=== PATIENT | female | born 1950 | race African-American/Black ===

== ENCOUNTER 2018-11-04 17:08 | Inpatient (IN) | payer MEDICARE, OTHER ==
[~2018-11-04] VITALS: Ht 149.9 cm; Wt 81.2 kg
[2018-11-04] MEDS ORDERED: Solu-MEDROL 125mg Inj IVP ONE (17:15)
--- NOTE | 2018-11-04 17:24 | Emergency Room Report ---
History of Present Illness General Source: Patient Present Illness HPI Patient is a 68-year-old female who presented after increased shortness of breath. Patient onset of symptoms approximately 2 hours prior to arrival. She had prior history of cardiac disease as well as diabetes. She had previous myocardial infarction x3 in the past. She states that she had been having increased swelling to her throat and feeling like she was having increased difficulty with respirations. She had prior history of some allergic reactions. She denies any vomiting. Patient reports having some discomfort to left side for several days. She reports some associated left arm numbness. Allergies: Coded Allergies: CODEINE (Verified Allergy, Intermediate, 11/04/18) PENICILLINS (Verified Allergy, Intermediate, 11/04/18) ASPIRIN (Verified Allergy, Unknown, 11/04/18) Patient History Past Medical History: see triage record Reviewed Nursing Documentation: PMH: Agreed; PSxH: Agreed Review of Systems All Other Systems: negative except mentioned in HPI Physical Exam Sp02 EP Interpretation: reviewed, normal General Appearance: normal inspection, alert, GCS 15, obese, Chronically Ill Head: atraumatic ENT: normal ENT inspection, hearing grossly normal, uvula midline Neck: normal inspection, full range of motion, supple, no bony tend Respiratory: normal inspection, no respiratory distress, no retraction, no wheezing, rales Cardiovascular #1: regular rate, rhythm, no edema Gastrointestinal: normal inspection, normal bowel sounds, non tender, soft, no guarding, no hernia Genitourinary: no CVA tenderness Musculoskeletal: normal inspection, back normal, normal range of motion Neurologic: normal inspection, alert, oriented x3, responsive, extraction supervisor III-XII nml as tested, motor strength/tone normal, speech normal Psychiatric: normal inspection, judgement/insight normal, mood/affect normal Skin: normal inspection, normal color, no rash Lymphatic: other - left axillary tenderness Medical Decision Making Diagnostic Impression: Primary Impression: Dyspnea Additional Impressions: Flank pain Hx of coronary artery disease Left axillary pain ER Course Patient presented for shortness of breath. Differential included but was not limited to allergic reaction, anemia, pneumonia, pneumothorax, myocardial infarction, congestive heart failure, acidosis among others. Patient initially presented with some sensation of difficulty moving air. She was not noted to have stridor. She was given IV solu-medrol for possible allergic reaction. Patient was not given Aspirin due to allergy, but does have some concerning history for possible ACS. Patient was given IV morphine due to left arm pain. Patient was noted to have good perfusion and strength to both upper extremity. Pulses were equal. Because of complexity of patient's case laboratory testing and imaging studies were ordered. EKG interpreted by me showed normal sinus rhythm with a rate of [address] or T wave changes. Patient was noted to have some T wave flattening. Patient was noted to have normal WBC. Initial troponin was negative. CXR showed no evident infiltrate. CTA of chest was ordered to evaluate for possible pulmonary embolism due to shortness of breath. CT of chest read by radiology showed multiple finding including lesion to left axillary area. No evident pulmonary embolism or aortic dissection. Patient was started on IV Clindamycin due to lesion to axilla and penicillin allergy. See full report for details. Dr. Marco A Dominguez was contacted for inpatient management due to capitated physician. Dr. Macho Cruz was contacted for cardiology consult. Labs Test 11/04/18 17:50 11/04/18 17:55 11/04/18 19:20 White Blood Count 10.7 K/UL (4.8-10.8) Red Blood Count 5.51 M/UL (4.20-5.40) Hemoglobin 13.4 G/DL (12.0-16.0) Hematocrit 40.5 % (37.0-47.0) Mean Corpuscular Volume 74 FL (80-99) Mean Corpuscular Hemoglobin 24.4 PG (27.0-31.0) Mean Corpuscular Hemoglobin Concent 33.2 G/DL (32.0-36.0) Red Cell Distribution Width 13.4 % (11.6-14.8) Platelet Count 379 K/UL (150-450) Mean Platelet Volume 6.8 FL (6.5-10.1) Neutrophils (%) (Auto) 60.7 % (45.0-75.0) Lymphocytes (%) (Auto) 31.5 % (20.0-45.0) Monocytes (%) (Auto) 6.2 % (1.0-10.0) Eosinophils (%) (Auto) 0.3 % (0.0-3.0) Basophils (%) (Auto) 1.3 % (0.0-2.0) Sodium Level 139 MMOL/L (136-145) Potassium Level 4.2 MMOL/L (3.5-5.1) Chloride Level 97 MMOL/L (98-107) Carbon Dioxide Level 28 MMOL/L (21-32) Anion Gap 14 mmol/L (5-15) Blood Urea Nitrogen 16 mg/dL (7-18) Creatinine 1.1 MG/DL (0.55-1.30) Estimat Glomerular Filtration Rate 59.9 mL/min (>60) Glucose Level 207 MG/DL (74-106) Calcium Level 9.9 MG/DL (8.5-10.1) Total Bilirubin 0.6 MG/DL (0.2-1.0) Aspartate Amino Transf (AST/SGOT) 48 U/L (15-37) Alanine Aminotransferase (ALT/SGPT) 24 U/L (12-78) Alkaline Phosphatase 91 U/L (46-116) Troponin I 0.000 ng/mL (0.000-0.056) Pro-B-Type Natriuretic Peptide 43 pg/mL (0-125) Total Protein 8.8 G/DL (6.4-8.2) Albumin 3.9 G/DL (3.4-5.0) Globulin 4.9 g/dL Albumin/Globulin Ratio 0.8 (1.0-2.7) Urine Color Pale yellow Urine Appearance Clear Urine pH 5 (4.5-8.0) Urine Specific [place] 1.010 (1.005-1.035) Urine Protein Negative (NEGATIVE) Urine Glucose (UA) 4+ (NEGATIVE) Urine Ketones 2+ (NEGATIVE) Urine Blood Negative (NEGATIVE) Urine Nitrite Negative (NEGATIVE) Urine Bilirubin Negative (NEGATIVE) Urine Urobilinogen 1 MG/DL (0.0-1.0) Urine Leukocyte Esterase 1+ (NEGATIVE) Urine RBC 5-10 /HPF (0 - 2) Urine WBC 2-4 /HPF (0 - 2) Urine Squamous Epithelial Cells None /LPF (NONE/OCC) Urine Bacteria Few /HPF (NONE) Lactic Acid Level 1.60 mmol/L (0.66-2.22) EKG Diagnostic Results Rate: normal - 90 Rhythm: NSR ST Segments: no acute changes Status: improved Disposition: ADMITTED INPATIENT Condition: Serious Patrice Cheema MD November 04, 2018 17:23
[2018-11-04] MEDS: Nitroglycerin Subl 0.4mg tab SL PRN ×2 (17:29→20:31)
[2018-11-04 17:30] VITALS: BP 136/67
--- NOTE | 2018-11-04 17:30 | NUR ---
ED Nurse Note: Patient brought in to ER by ambulance from home due to SOB. pt aao x4 and anxious due to SOB. per pt, SOB started by 1500 today while she was in shower. pt is saturating 100% on room air. per pt, she has had 3 heart attacks which makes her concern about this symptom. skin clean and intact. pt able to ambulate with assist and change position in bed.
--- NOTE | 2018-11-04 17:35 | NUR ---
ED Nurse Note: Nitro 0.4mg was placed under the tongue.
--- NOTE | 2018-11-04 17:50 | NUR ---
ED Nurse Note: second dose of Nitro 0.4mg was placed under the tongue.
--- NOTE | 2018-11-04 18:00 | NUR ---
ED Nurse Note: pt verbalized improved chest pain but requesting Morphin for Lt flank pain. ERMD made aware.
[2018-11-04] MEDS ORDERED: AMLODIPINE BESY10 MG ORAL (18:09)
[2018-11-04] MEDS ORDERED: MELOXICAM7.5 MG PO (18:09)
[2018-11-04] MEDS ORDERED: METOPROLOL TART50 M1 ORAL (18:09)
[2018-11-04] MEDS ORDERED: PLAVIX75 MG ORAL (18:09)
[2018-11-04] MEDS ORDERED: HYDROCHLOROTHIA25 MG ORAL (18:09)
[2018-11-04] MEDS ORDERED: HUMALOG MI100 UNIT/6 SQ (18:09)
--- NOTE | 2018-11-04 18:10 | NUR ---
ED Nurse Note: Patient unable to recall all of her meds or exact dosage at this time.
[2018-11-04] MEDS ORDERED: Morphine Sulfate 2mg/ml Inj(IV/IM USE ONLY) IVP ONE ×3 (18:15→23:15)
[2018-11-04 18:20] LABS: ANION GAP 14 mmol/L (5-15); BLOOD UREA NITROGEN 16 mg/dL (7-18); CALCIUM 9.9 MG/DL (8.5-10.1); CARBON DIOXIDE 28 MMOL/L (21-32); CHLORIDE 97 MMOL/L (98-107); CREATININE 1.1 MG/DL (0.55-1.30); POTASSIUM 4.2 MMOL/L (3.5-5.1); SODIUM 139 MMOL/L (136-145)
[2018-11-04 18:29] LABS: APPEARANCE,URINE CLEAR; BILIRUBIN, URINE NEGATIVE (NEGATIVE); COLOR,URINE PALE YELLOW; GLUCOSE, URINE (UA) 4+ (NEGATIVE); KETONES,URINE 2+ (NEGATIVE); LEUKOCYTE ESTERASE ,URINE 1+ (NEGATIVE); NITRITE,URINE NEGATIVE (NEGATIVE); PH,URINE 5 (4.5-8.0); PROTEIN,URINE NEGATIVE (NEGATIVE); UROBILINOGEN,URINE 1 MG/DL (0.0-1.0)
[2018-11-04 18:30] LABS: BASOPHILS % (AUTO) 1.3 % (0.0-2.0); EOSINOPHILS % (AUTO) 0.3 % (0.0-3.0); HEMATOCRIT 40.5 % (37.0-47.0); HEMOGLOBIN 13.4 G/DL (12.0-16.0); LYMPHOCYTES % (AUTO) 31.5 % (20.0-45.0); MEAN CORPUSCULAR VOLUME 74 FL (80-99); MONOCYTES % (AUTO) 6.2 % (1.0-10.0); NEUTROPHILS % (AUTO) 60.7 % (45.0-75.0); PLATELET COUNT 379 K/UL (150-450); RED BLOOD COUNT 5.51 M/UL (4.20-5.40); RED CELL DISTRIBUTION WIDTH 13.4 % (11.6-14.8); WHITE BLOOD COUNT 10.7 K/UL (4.8-10.8)
[2018-11-04 18:34] LABS: ALANINE AMINOTRANSFERASE 24 U/L (12-78); ALBUMIN 3.9 G/DL (3.4-5.0); ALBUMIN/GLOBULIN RATIO 0.8 (1.0-2.7); ALKALINE PHOSPHATASE 91 U/L (46-116); ASPARTATE AMINO TRANSFERASE 48 U/L (15-37); BILIRUBIN,TOTAL 0.6 MG/DL (0.2-1.0)
[2018-11-04 19:04] VITALS: BP 128/75
--- NOTE | 2018-11-04 19:05 | NUR ---
HAND-OFF: Report given to MICHA Shipman. Lactic reflux was endorsed. no other orders to carry at this moment.
[2018-11-04 20:03] VITALS: BP_SYST 139; BP_SYST 159; BP_DIAS 66; BP_DIAS 69
[2018-11-04] MEDS ORDERED: Isovue-370 150ml vial INJ PRN (20:45)
--- NOTE | 2018-11-04 21:00 | NUR ---
ER Nurse Note: Pt awake, a&ox4, VSS, no signs of futher distress. Pt complains of generilized pain 01/28, ERMD notifed and awaiting orders. Pt denies chest pain. Bedside commode at pt side; no difficulty voiding. All safety measures met; will [facility] to [facility]. Contact info: -[place], : Cell - ; Home -
[2018-11-04 22:30] VITALS: BP 140/80
[2018-11-04 23:50] VITALS: BP 136/72
--- NOTE | 2018-11-04 23:50 | NUR ---
ER Nurse Note: Report given to MICHA Jasso in tele for continuity of care. Pt stable; pain meds given. All orders completed per ERMD orders. Pt left with all belongings.
[2018-11-05] VITALS: BP 152/82
--- NOTE | 2018-11-05 | NUR ---
NURSE NOTES: Got report from Ramonita MUSE from ER. Pt in stable condition. Denies any pain. No s/s of distress or discomfort noted. Pt resting in bed comfortably. Pt full oriented and sating 98% on room air. No skin issues noted. VS BP:152/82 T:97.3 HR:88 R:19 O2:98. Gait is weak but able to get to bedside commode with minimal assistance. Bed in low and locked position, call light within reach, bedside table within reach. Continue to monitor. Dr. Osborne paged. Orders given and placed.
[2018-11-05 04:20] VITALS: BP 144/86
[2018-11-05] MEDS: NovoLOG Insulin Flexpen SUBQ SCH ×3 (06:30→16:30)
--- NOTE | 2018-11-05 07:00 | NUR ---
HAND-OFF: Report given to Willa MUSE. Endorsed plan of care.
--- NOTE | 2018-11-05 07:10 | NUR ---
NURSE NOTES: I received the patient awake and eating breakfast at the side of her bed. Patient alert and oriented x4. Bed in the lowest position and call light within reach. Patient does not display any signs of distress or SOB.
[2018-11-05 08:00] VITALS: BP 169/94
[2018-11-05] MEDS: Metoprolol Tartrate 50mg tab ORAL SCH ×2 (08:29→20:26)
[2018-11-05] MEDS ORDERED: SYNTHROID112 MCG ORAL (08:39)
[2018-11-05 08:44] LABS: ANION GAP 13 mmol/L (5-15); BLOOD UREA NITROGEN 19 mg/dL (7-18); CALCIUM 9.7 MG/DL (8.5-10.1); CARBON DIOXIDE 28 MMOL/L (21-32); CHLORIDE 99 MMOL/L (98-107); CREATININE 1.2 MG/DL (0.55-1.30); POTASSIUM 3.6 MMOL/L (3.5-5.1); SODIUM 140 MMOL/L (136-145)
[2018-11-05 09:30] LABS: HEMATOCRIT 40.9 % (37.0-47.0); HEMOGLOBIN 13.2 G/DL (12.0-16.0); MEAN CORPUSCULAR VOLUME 75 FL (80-99); PLATELET COUNT 346 K/UL (150-450); RED BLOOD COUNT 5.42 M/UL (4.20-5.40); RED CELL DISTRIBUTION WIDTH 13.9 % (11.6-14.8); WHITE BLOOD COUNT 11.4 K/UL (4.8-10.8)
--- NOTE | 2018-11-05 09:53 | Diagnostic Imaging Report ---
Indication: Chest pain Technique: Continuous helical transaxial imaging of the chest was obtained from the thoracic inlet to the upper abdomen during rapid intravenous contrast administration. Arterial phase of enhancement obtained. Coronal 2-D reformats were also obtained and maximum intensity projection images in multiple planes. Study obtained in a Siemens sensation [address] Automatic Exposure Control was utilized. Total Dose length Product (DLP): [address] Dose Index Volume (CTDIvol): 29.38 mGy Comparison: None Findings: The pulmonary artery is well opacified and shows no filling defects. There is no adenopathy, pleural or pericardial effusions are identified. There is no aortic dissection or aneurysm identified within the chest. There are moderate-sized lymph nodes in the left axilla. Correlate clinically. The correlation may include evaluation with mammography and/or ultrasound. The esophagus shows the wall thickening and suggest further evaluation. Hiatal hernia is present. The lungs show posterior basilar atelectasis. Visualized part of the upper abdomen shows a calcification in the spleen. Impression: No evidence of pulmonary embolus, aortic dissection or aneurysm. Left axillary lymphadenopathy. Further evaluation is recommended. Suggestion of thickening of the esophageal wall. Consider EGD for further evaluation. Hiatal hernia. Calcification the spleen nonspecific. Consider old granulomatous disease. [facility] has communicated the preliminary results to the Emergency Department. Their findings are largely concordant with this report. The CT scanner at [facility] is accredited by the [employer] and the scans are performed using dose optimization techniques as appropriate to a performed exam including Automatic Exposure control.
--- NOTE | 2018-11-05 11:12 | Diagnostic Imaging Report ---
Indication: Dyspnea Comparison: None A single view chest radiograph was obtained. Findings: Prominent cardiac silhouette may be a function of low lung volumes. No obvious infiltrate or other acute process identified. Bones are unremarkable. IMPRESSION: Limited evaluation. No acute disease
--- NOTE | 2018-11-05 11:37 | NUR ---
NURSE NOTES: Patient does not want to take the insulin prescribed by the doctor. Patient would like to use her own insulin pen. I contacted the doctor to ask if the patient's insulin pen can be taken to the pharmacy. Patient's family member is to bring in the patient's Jardiance and insulin pen.
[2018-11-05 12:00] VITALS: BP 124/85
--- NOTE | 2018-11-05 12:39 | Cardiology Progress Note ---
Assessment/Plan Assessment/Plan [id number] main sx on throat swelling had palp and some cp babcock shd cp before cath mod lad and d1 disee 06/2017 lora only new med jardiance 1 mon has had recurrent sx for about 1 week er md did nto note stridor but pt feel swelling ct ws neg except left ax adenopathy and esophageal thickening all trop and bnp neg ekg neg will repeat trop and ekg adn echo unless those are abn i will not do further testing is followed at [facility] may have eval by them infuture Objective Last 24 Hour Vital Signs Date Time Temp Pulse Resp B/P (MAP) Pulse Ox O2 Delivery O2 Flow Rate FiO2 11/05/18 12:00 97.0 73 20 124/85 (98) 96 11/05/18 09:00 Room Air 11/05/18 08:29 93 169/94 11/05/18 08:29 93 169/94 11/05/18 08:00 98.2 93 20 169/94 (119) 96 11/05/18 07:59 93 11/05/18 04:20 93 11/05/18 04:20 98.0 98 18 144/86 (105) 97 11/05/18 04:12 Room Air 11/05/18 00:23 98.1 11/05/18 00:23 98.1 11/05/18 00:00 79 11/05/18 00:00 97.3 88 19 152/82 (105) 98 11/04/18 23:50 98.6 84 14 136/72 99 Room Air 11/04/18 23:50 98.6 84 14 136/72 99 Room Air 11/04/18 22:30 98.5 88 17 140/80 100 Room Air 11/04/18 20:31 146/66 11/04/18 20:03 139/69 159/66 11/04/18 19:04 98.1 90 19 128/75 100 Room Air 11/04/18 18:45 98.6 11/04/18 17:30 98.6 102 19 136/67 100 Room Air 11/04/18 17:30 102 19 Room Air 11/04/18 17:29 146/67 11/04/18 17:16 98.2 102 19 100 Room Air Intake and Output 11/04/18 11/05/18 19:00 07:00 Intake Total 0 ml 1050 ml Balance 0 ml 1050 ml Intake Oral 0 ml IV Total 1050 ml # Voids 1 1 Laboratory Tests Test 11/04/18 17:50 11/04/18 17:55 11/04/18 19:20 11/05/18 08:05 White Blood Count 10.7 K/UL (4.8-10.8) Red Blood Count 5.51 M/UL (4.20-5.40) H Hemoglobin 13.4 G/DL (12.0-16.0) Hematocrit 40.5 % (37.0-47.0) Mean Corpuscular Volume 74 FL (80-99) L Mean Corpuscular Hemoglobin 24.4 PG (27.0-31.0) L Mean Corpuscular Hemoglobin Concent 33.2 G/DL (32.0-36.0) Red Cell Distribution Width 13.4 % (11.6-14.8) Platelet Count 379 K/UL (150-450) Mean Platelet Volume 6.8 FL (6.5-10.1) Neutrophils (%) (Auto) 60.7 % (45.0-75.0) Lymphocytes (%) (Auto) 31.5 % (20.0-45.0) Monocytes (%) (Auto) 6.2 % (1.0-10.0) Eosinophils (%) (Auto) 0.3 % (0.0-3.0) Basophils (%) (Auto) 1.3 % (0.0-2.0) Sodium Level 139 MMOL/L (136-145) 140 MMOL/L (136-145) Potassium Level 4.2 MMOL/L (3.5-5.1) 3.6 MMOL/L (3.5-5.1) Chloride Level 97 MMOL/L (98-107) L 99 MMOL/L (98-107) Carbon Dioxide Level 28 MMOL/L (21-32) 28 MMOL/L (21-32) Anion Gap 14 mmol/L (5-15) 13 mmol/L (5-15) Blood Urea Nitrogen 16 mg/dL (7-18) 19 mg/dL (7-18) H Creatinine 1.1 MG/DL (0.55-1.30) 1.2 MG/DL (0.55-1.30) Estimat Glomerular Filtration Rate 59.9 mL/min (>60) 54.2 mL/min (>60) Glucose Level 207 MG/DL (74-106) H 357 MG/DL (74-106) #H Lactic Acid Level 2.20 mmol/L (0.4-2.0) H 1.60 mmol/L (0.66-2.22) Calcium Level 9.9 MG/DL (8.5-10.1) 9.7 MG/DL (8.5-10.1) Total Bilirubin 0.6 MG/DL (0.2-1.0) Aspartate Amino Transf (AST/SGOT) 48 U/L (15-37) H Alanine Aminotransferase (ALT/SGPT) 24 U/L (12-78) Alkaline Phosphatase 91 U/L (46-116) Troponin I 0.000 ng/mL (0.000-0.056) 0.000 ng/mL (0.000-0.056) Pro-B-Type Natriuretic Peptide 43 pg/mL (0-125) Total Protein 8.8 G/DL (6.4-8.2) H Albumin 3.9 G/DL (3.4-5.0) Globulin 4.9 g/dL Albumin/Globulin Ratio 0.8 (1.0-2.7) L Urine Color Pale yellow Urine Appearance Clear Urine pH 5 (4.5-8.0) Urine Specific [place] 1.010 (1.005-1.035) Urine Protein Negative (NEGATIVE) Urine Glucose (UA) 4+ (NEGATIVE) H Urine Ketones 2+ (NEGATIVE) H Urine Blood Negative (NEGATIVE) Urine Nitrite Negative (NEGATIVE) Urine Bilirubin Negative (NEGATIVE) Urine Urobilinogen 1 MG/DL (0.0-1.0) H Urine Leukocyte Esterase 1+ (NEGATIVE) H Urine RBC 5-10 /HPF (0 - 2) H Urine WBC 2-4 /HPF (0 - 2) Urine Squamous Epithelial Cells None /LPF (NONE/OCC) Urine Bacteria Few /HPF (NONE) Test 11/05/18 09:20 White Blood Count 11.4 K/UL (4.8-10.8) H Red Blood Count 5.42 M/UL (4.20-5.40) H Hemoglobin 13.2 G/DL (12.0-16.0) Hematocrit 40.9 % (37.0-47.0) Mean Corpuscular Volume 75 FL (80-99) L Mean Corpuscular Hemoglobin 24.3 PG (27.0-31.0) L Mean Corpuscular Hemoglobin Concent 32.2 G/DL (32.0-36.0) Red Cell Distribution Width 13.9 % (11.6-14.8) Platelet Count 346 K/UL (150-450) Mean Platelet Volume 7.7 FL (6.5-10.1) Neutrophils (%) (Auto) % (45.0-75.0) Lymphocytes (%) (Auto) % (20.0-45.0) Monocytes (%) (Auto) % (1.0-10.0) Eosinophils (%) (Auto) % (0.0-3.0) Basophils (%) (Auto) % (0.0-2.0) Differential Total Cells Counted 100 Neutrophils % (Manual) 86 % (45-75) H Lymphocytes % (Manual) 11 % (20-45) L Monocytes % (Manual) 3 % (1-10) Eosinophils % (Manual) 0 % (0-3) Basophils % (Manual) 0 % (0-2) Band Neutrophils 0 % (0-8) Platelet Estimate Adequate Platelet Morphology Normal Microcytosis 1+ Macho Cruz MD November 05, 2018 12:39
--- NOTE | 2018-11-05 13:48 | NUR ---
NURSE NOTES: Patient said Tylenol does not help her pain and asked for morphine. I contacted Dr. Osborne and asked for an order. Patient is resting in bed and does not display any signs of distress or SOB.
[2018-11-05] MEDS ORDERED: Tubing IV Secondary IV ONE (15:47)
[2018-11-05 15:48] VITALS: BP 147/74
--- NOTE | 2018-11-05 16:20 | NUR ---
NURSE NOTES: Patient complaining of pain and will not take the Tylenol that has been ordered. I contacted Dr. Osborne asking if she could prescribe another medication. Patient resting in bed and does not display any signs of distress. Bed in the lowest position and call light within reach.
[2018-11-05] MEDS: HUMALOG SUBQ SCH (16:57)
--- NOTE | 2018-11-05 17:58 | NUR ---
NURSE NOTES: Patient is still complaining of pain. I left another message for Dr. Osborne. I also contacted the retail warehouse supervisor and she suggested I contact Dr. Cruz, as he is the only consult on the case. I left Dr. Cruz a message. I will await a response. Addendum: 11/05/18 at 1814 by GUNNER HALEY RN Dr. Cruz gave an order for pain medication.
--- NOTE | 2018-11-05 18:00 | NUR ---
NURSE NOTES: I went to the patient's room and informed her that I had contacted Dr. Osborne, Dr. Cruz and the household refrigeration mechanic. The patient believes she is not being treated appropriately due to her being black. I explained to the patient that I am attempting everything I can to get her medication for her pain.
[2018-11-05] MEDS ORDERED: Morphine Sulfate 2mg/ml Inj(IV/IM USE ONLY) IVP PRN (18:15)
--- NOTE | 2018-11-05 19:19 | NUR ---
HAND-OFF: Report given to MICHA Harrington.
--- NOTE | 2018-11-05 19:31 | NUR ---
NURSE NOTES: Report received from MICHA Crouch. Pt is resting comfortably in bed and in stable condition. bed is in the lowest position, bed brakes engaged, side rails upx3 and call light within reach. Will continue to monitor.
--- NOTE | 2018-11-05 19:56 | NUR ---
CASE MANAGEMENT: REVIEW 68Y/F BIBA FROM CC: SOB SI: ACS T 98.6 HR 102 RR 19 BP 146/67 SAT 100% ROOM AIR TROPONIN I 0.000 IS: MORPHINE IV X1 SOLU MEDROL IV X1 NS IVF BOLUS X1 NITRO SQ X1 PATIENT ADMITTED TO TELEMETRY UNIT 11/04/2018 DCP: PATIENT IS FROM HOME
[2018-11-05 20:00] VITALS: BP 151/63
--- NOTE | 2018-11-05 20:41 | History & Physical ---
History and Physical History & Physicial Left axillary lymphadenopathy. Further evaluation is recommended. Suggestion of thickening of the esophageal wall. Consider EGD for further evaluation. Hiatal hernia. [id number] cp TYPICAL BACK PAIN LOWER BACK DM HTN HLD Mariza Osborne DO November 05, 2018 20:41
[2018-11-06] VITALS: BP 123/66
--- NOTE | 2018-11-06 00:15 | Consultation ---
DATE OF CONSULTATION: 11/05/2018 CARDIOLOGY CONSULTATION CONSULTING PHYSICIAN: Macho Cruz M.D. REFERRING PHYSICIAN: Marco A Dominguez M.D. REASON FOR REFERRAL: Shortness of breath and chest pain. HISTORY OF PRESENT ILLNESS: This is a 68-year-old female, who has had over the past week or two, several episodes of what she calls throat swelling and it always goes down and yesterday, it was not going down and she had some palpitations, she had some shortness of breath, and some pains in her chest in different areas, different from what she has had previously. She thinks it is related to arthritis at least the pain. Nevertheless because of persistent symptoms, she finally decided to come to the emergency room at [facility] where she was evaluated by the emergency room physician. Dose of steroids were given because of her symptoms. The emergency room physician thought that the patient had sensation of difficulty moving here, but was not having stridor. Dose of steroids were given for possibility of an allergic reaction and some morphine for left arm pain. In either case, the patient indicates that her symptoms lasted at least seven hours, possibly the longer and she finally came to the floor and those symptoms resolved. She does not have any PND. She uses multiple pillows for comfort. She does have sleep apnea. She uses CPAP. There is no dizziness or lightheadedness on standing. She does walk some and she never gets any chest pain when she walks and she does not get short of breath with the amount of walking that she does do. She did have palpitations yesterday and she did have some dizziness at times. The [facility] records were reviewed. She has a history of insulin-dependent diabetes mellitus; sleep apnea, on CPAP; hypertension; and old report lookup of myocardial infarction. She does have history of coronary artery disease that is moderate in degree and angina and the angina was felt to be possibly related to coronary spasm rather than obstructive disease. She did have a cardiac catheterization in June 2007, which showed mid diagonal and mid LAD disease with FFRs. FFRs were not significant. She did not require any stents. Her "angina" was felt to have been relatively stable. She does have a history of stress echo in March 2018, 3 minutes normal augmentation in calf as mentioned; left main, no significant disease; LAD, diffuse disease in LAD, no significant FFR, diagonal had 70%; circumflex tortuous, no significant disease; and RCA with mild disease. The SPECT in 2017 was normal and she does have a history of systemic hypertension, obesity, hypothyroidism, sacroiliitis, cervical radiculopathy, peripheral neuropathy, sleep apnea, vitamin D deficiency, polymyalgia rheumatica, dyspepsia, idiopathic angioedema, pancreatic cyst, gout, spondyloarthropathy, rotator cuff disorder, hyperlipidemia, glaucoma, benzodiazepine dependence, coronary artery spasm, history of chest pains, chronic diastolic heart failure, colonic polyps, and history of uvulopharyngoplasty as well. SOCIAL HISTORY: Never smoked. Alcohol socially. No drug use. REVIEW OF SYSTEMS: GASTROINTESTINAL: She has had previous nausea, but do not think in the past 24 hours. No vomiting. No diarrhea. No bloody stools or black or tarry stools recently. GENITOURINARY: No burning on urination. PULMONARY: Minimal coughing. Really, no wheezing she says. CONSTITUTIONAL: No fevers, chills, or night sweats. NEUROLOGICAL: Negative. PHYSICAL EXAMINATION: GENERAL: Shows to be morbidly obese, middle-aged female, in no respiratory distress. NECK: Supple. No jugular venous distention. LUNGS: Clear to auscultation and percussion. CARDIAC: S1 is normal. S2 is normal. Regular rate and rhythm. No heaves, thrills, or gallops noted. ABDOMEN: Soft and nontender. Positive bowel sounds. Obese. EXTREMITIES: There is no clubbing, cyanosis, nor is there any edema. NEUROLOGIC: She is awake, alert, responsive, and in no apparent respiratory distress. LABORATORY AND DIAGNOSTIC DATA: White count of 11.4 with hemoglobin 13.2 and a platelet count of 346,000. Sodium is 140, potassium 3.6, chloride 99, bicarbonate 28, BUN is 19, creatinine 1.2, and a glucose of 357. Lactic acid initially was 2.2, subsequently is 1.6 and calcium is 9.7. Troponin last night was 0.00 and troponin this morning at 8 o'clock was 0.00. Her proBNP was only 43. A chest x-ray was performed in the emergency room, was limited, no acute disease. She did undergo a chest CTA that showed no evidence of pulmonary embolism, dissection, or aneurysm. Left axillary lymphadenopathy was apparently noted. Esophagus wall was somewhat thickened on the CT scan. Hiatal hernia was present and her electrocardiogram performed showed normal sinus rhythm, really no significant ST or T-wave abnormalities and telemetry is sinus. ASSESSMENT: 1. "Throat swelling." 2. Chest pain. 3. Coronary artery disease, moderate, possibly related to coronary spasm. 4. Left axillary lymphadenopathy noted on CT scan. 5. Esophageal thickening noted on the CT scan. 6. Diabetes mellitus. 7. Hypertension. 8. Obesity. 9. Sleep apnea. 10. Polymyalgia rheumatica. PLAN: Dr. Dominguez, this patient was seen in cardiac consultation. The patient had at least 7 hours of chest pain while here in the hospital between 5 and 12 when she finally got some relief. Yet, her cardiac enzymes are negative and the EKG initially was negative. The repeat troponin this morning was negative as well. She has had a history of coronary artery disease previously as mentioned with moderate disease. EKG will be repeated. Cardiac enzymes will be repeated. An echocardiogram will be repeated. However, she is long-term followed at [facility]. She may follow up with them for further testing as deemed necessary. Her main issue is not chest pain. Her main issue is the fact that she had some sensation of her throat closing up, but she did not have stridor last night. She feels better this morning, but she still feels that her throat is still swollen. The only medication that is new has been ongoing for approximately 1 month is the Jardiance according to the patient. All the other medications are old, although Jardiance listed as angioedema as one of the potential side effects. I am not sure what she actually experiences after the angioedema. Nevertheless, in the setting of her description, there is a concern. May consider ENT evaluation in the future. From a cardiac point of view, unless her EKG is abnormal, cardiac enzymes are abnormal, or echocardiogram is abnormal, I will probably not pursue any further at this time. Macho Cruz M.D. DR: JAMAR JOB#: [id number] CC:
[2018-11-06 04:00] VITALS: BP 150/69
[2018-11-06] MEDS: HUMALOG SUBQ SCH ×2 (06:04→17:11)
[2018-11-06 07:32] LABS: BASOPHILS % (AUTO) 1.2 % (0.0-2.0); EOSINOPHILS % (AUTO) 0.9 % (0.0-3.0); HEMATOCRIT 40.3 % (37.0-47.0); HEMOGLOBIN 13.2 G/DL (12.0-16.0); MEAN CORPUSCULAR VOLUME 76 FL (80-99); MONOCYTES % (AUTO) 5.1 % (1.0-10.0); NEUTROPHILS % (AUTO) 55.8 % (45.0-75.0); PLATELET COUNT 348 K/UL (150-450); RED BLOOD COUNT 5.32 M/UL (4.20-5.40); RED CELL DISTRIBUTION WIDTH 13.8 % (11.6-14.8); WHITE BLOOD COUNT 8.3 K/UL (4.8-10.8)
--- NOTE | 2018-11-06 07:33 | NUR ---
HAND-OFF: Report given to MICHA Pa.
--- NOTE | 2018-11-06 07:38 | NUR ---
NURSE NOTES: Patient is alert and awake. Patient is resting in bed. Patient is on 4 liters oxygen via nasal cannula. Side rails are up x2, bed is locked, and call light is within reach. Will continue to monitor. Addendum: 11/06/18 at 0742 by JAYY MORALES RN RN Incorrect patient.
--- NOTE | 2018-11-06 07:42 | NUR ---
NURSE NOTES: Patient is alert and oriented. Patient is sitting up in chair, eating breakfast. Patient is on room air. Call light is within reach. Will continue to monitor.
[2018-11-06 07:44] LABS: ANION GAP 10 mmol/L (5-15); BLOOD UREA NITROGEN 18 mg/dL (7-18); CALCIUM 9.3 MG/DL (8.5-10.1); CARBON DIOXIDE 32 MMOL/L (21-32); CHLORIDE 100 MMOL/L (98-107); SODIUM 142 MMOL/L (136-145)
[2018-11-06 07:48] LABS: POTASSIUM 2.5 MMOL/L (3.5-5.1)
[2018-11-06 08:00] VITALS: BP 128/73
--- NOTE | 2018-11-06 08:15 | NUR ---
NURSE NOTES: Potassium this AM 2.5. Dr. Osborne called to notify. New orders received.
[2018-11-06] MEDS: Metoprolol Tartrate 50mg tab ORAL SCH ×2 (08:46→20:53)
--- NOTE | 2018-11-06 10:23 | Cardiology Progress Note ---
Assessment/Plan Assessment/Plan 1. "Throat swelling." 2. Chest pain. 3. Coronary artery disease, moderate, possibly related to coronary spasm. 4. Left axillary lymphadenopathy noted on CT scan. 5. Esophageal thickening noted on the CT scan. 6. Diabetes mellitus. 7. Hypertension. 8. Obesity. 9. Sleep apnea. 10. Polymyalgia rheumatica main sx on throat swelling had palp and some cp has had cp before cath mod lad and d1 disee 06/2017 the only new med jardiance 1 mon has had recurrent sx for about 1 week er md did not note stridor but pt feel swelling ct ws neg except left ax adenopathy and esophageal thickening all trop and bnp neg ekg neg echo pending unless echo is abn i will not do further testing is followed at [facility] may have eval by them in future i was called several tiem over nite for steven , tele reviewed steven not sig had 2 nonconducted pac to explains so i will not decrease the bb Subjective Cardiovascular: Denies: chest pain, lightheadedness, palpitations Respiratory: Reports: shortness of breath - better Gastrointestinal/Abdominal: Denies: abdominal pain Genitourinary: Denies: burning Objective Last 24 Hour Vital Signs Date Time Temp Pulse Resp B/P (MAP) Pulse Ox O2 Delivery O2 Flow Rate FiO2 11/06/18 08:46 74 134/75 11/06/18 08:45 74 134/75 11/06/18 08:00 98.1 79 18 128/73 (91) 96 11/06/18 04:00 58 11/06/18 04:00 97.9 69 18 150/69 (96) 98 11/06/18 00:00 97.9 65 18 123/66 (85) 99 11/06/18 00:00 62 11/05/18 21:00 Room Air 11/05/18 20:26 80 151/63 11/05/18 20:00 98.4 80 19 151/63 (92) 95 11/05/18 20:00 83 11/05/18 15:48 98.6 86 24 147/74 (98) 99 11/05/18 15:30 91 11/05/18 12:00 97.0 73 20 124/85 (98) 96 11/05/18 11:52 75 General Appearance: no apparent distress Neck: supple Cardiovascular: normal rate Respiratory/Chest: lungs clear, normal breath sounds Abdomen: normal bowel sounds, non tender, soft Extremities: no swelling Intake and Output 11/05/18 11/06/18 19:00 07:00 # Voids 3 1 Laboratory Tests Test 11/05/18 16:15 11/06/18 06:45 Troponin I 0.000 ng/mL (0.000-0.056) 0.000 ng/mL (0.000-0.056) White Blood Count 8.3 K/UL (4.8-10.8) Red Blood Count 5.32 M/UL (4.20-5.40) Hemoglobin 13.2 G/DL (12.0-16.0) Hematocrit 40.3 % (37.0-47.0) Mean Corpuscular Volume 76 FL (80-99) L Mean Corpuscular Hemoglobin 24.8 PG (27.0-31.0) L Mean Corpuscular Hemoglobin Concent 32.7 G/DL (32.0-36.0) Red Cell Distribution Width 13.8 % (11.6-14.8) Platelet Count 348 K/UL (150-450) Mean Platelet Volume 7.4 FL (6.5-10.1) Neutrophils (%) (Auto) 55.8 % (45.0-75.0) Lymphocytes (%) (Auto) 37.0 % (20.0-45.0) Monocytes (%) (Auto) 5.1 % (1.0-10.0) Eosinophils (%) (Auto) 0.9 % (0.0-3.0) Basophils (%) (Auto) 1.2 % (0.0-2.0) Sodium Level 142 MMOL/L (136-145) Potassium Level 2.5 MMOL/L (3.5-5.1) *L Chloride Level 100 MMOL/L (98-107) Carbon Dioxide Level 32 MMOL/L (21-32) Anion Gap 10 mmol/L (5-15) Blood Urea Nitrogen 18 mg/dL (7-18) Creatinine 1.0 MG/DL (0.55-1.30) Estimat Glomerular Filtration Rate > 60 mL/min (>60) Glucose Level 110 MG/DL (74-106) #H Calcium Level 9.3 MG/DL (8.5-10.1) Magnesium Level 2.2 MG/DL (1.8-2.4) Microbiology Date/Time Source Procedure Growth Status 11/04/18 17:50 Blood Blood Culture - Preliminary NO GROWTH AFTER 24 HOURS Resulted 11/04/18 17:35 Blood Blood Culture - Preliminary NO GROWTH AFTER 24 HOURS Resulted Macho Cruz MD November 06, 2018 10:23
[2018-11-06 12:00] VITALS: BP 149/84
--- NOTE | 2018-11-06 13:23 | NUR ---
NURSE NOTES: Patient reports medication's received inpatient do not match home medication list. Patient report Headache 8/ and nausea. Dr. Osborne notified. New orders received.
--- NOTE | 2018-11-06 13:24 | NUR ---
NURSE NOTES: Patient found on floor at 1120. Patient reports she did not hit head. Vital signs taken and stable. Patient reports she slid off bed and landed on bilateral knees. No abrasions or scratches noted on patient. Patient is alert and oriented X4. Dr. Osborne notified. New orders for imaging received.
[2018-11-06] MEDS: traMADol 50mg tab ORAL PRN ×2 (13:46→20:52)
--- NOTE | 2018-11-06 14:57 | NUR ---
NURSE NOTES: Patient had episode of bradycardia of 43, also strips with 2 degree AVB noted in chart reported to Dr. Cruz. No new orders received.
--- NOTE | 2018-11-06 15:00 | NUR ---
CASE MANAGEMENT: REVIEW SI: ACS T 98.1 HR 58 RR 18 BP 150/69 SAT 96% ROOM AIR K+ 2.5 IS: K-DUR 40mEq PO X1 ISOSORBIDE PO QD HYDROCHLOROTHIAZIDE PO QD PLAVIX PO QD NORVASC PO QD TELEMETRY UNIT STATUS DCP: PATIENT IS FROM HOME
[2018-11-06 15:01] LABS: ANION GAP 10 mmol/L (5-15); BLOOD UREA NITROGEN 20 mg/dL (7-18); CALCIUM 9.5 MG/DL (8.5-10.1); CARBON DIOXIDE 31 MMOL/L (21-32); CHLORIDE 100 MMOL/L (98-107); CREATININE 1.2 MG/DL (0.55-1.30); POTASSIUM 3.2 MMOL/L (3.5-5.1); SODIUM 141 MMOL/L (136-145)
[2018-11-06 16:00] VITALS: BP 131/63
--- NOTE | 2018-11-06 16:41 | Pulmonology Progress Note ---
Assessment/Plan Assessment/Plan Atypical CP HTn, DM HLD Hx of tonsil sx in March Left axillary LN mild thickenign of esophagus seen on CT fall from bed with knee pain hypokalemia replaced k recheck in am fu knee xrays needs out pt fu of LN l axilla and EGD no further cards chopra if stable will be dc in am Subjective Constitutional: Reports: no symptoms HEENT: Repors: no symptoms Respiratory: Reports: no symptoms Cardiovascular: Reports: no symptoms Gastrointestinal/Abdominal: Reports: no symptoms Genitourinary: Reports: no symptoms Neurologic: Reports: no symptoms Allergies: Coded Allergies: CODEINE (Verified Allergy, Intermediate, 11/04/18) PENICILLINS (Verified Allergy, Intermediate, 11/04/18) ASPIRIN (Verified Allergy, Unknown, 11/04/18) Subjective over all feeling betting was "rolling" out of bed and landed on her knees. complains of knee pain on RA no cp nv or bleeding tolerating po no further complaints of back pain UA noted with LE + but no culture sent cards saw the pt and did not think pt had bradycardia over night pt now concerned with left axillary LN Objective Last 24 Hour Vital Signs Date Time Temp Pulse Resp B/P (MAP) Pulse Ox O2 Delivery O2 Flow Rate FiO2 11/06/18 16:00 98.2 73 20 131/63 (85) 96 11/06/18 12:00 97.7 77 20 149/84 (105) 98 11/06/18 12:00 48 11/06/18 09:00 88 11/06/18 08:46 74 134/75 11/06/18 08:45 74 134/75 11/06/18 08:00 Room Air 11/06/18 08:00 98.1 79 18 128/73 (91) 96 11/06/18 04:00 58 11/06/18 04:00 97.9 69 18 150/69 (96) 98 11/06/18 00:00 97.9 65 18 123/66 (85) 99 11/06/18 00:00 62 11/05/18 21:00 Room Air 11/05/18 20:26 80 151/63 11/05/18 20:00 98.4 80 19 151/63 (92) 95 11/05/18 20:00 83 Intake and Output 11/05/18 11/06/18 18:59 06:59 # Voids 3 1 General Appearance: WD/WN Respiratory/Chest: lungs clear, normal breath sounds Cardiovascular: normal rate, regular rhythm Abdomen: soft, non tender, no organomegaly Skin: other - large LN left axilla Neurologic/Psychiatric: alert, oriented x 3 Microbiology Date/Time Source Procedure Growth Status 11/04/18 17:50 Blood Blood Culture - Preliminary NO GROWTH AFTER 24 HOURS Resulted 11/04/18 17:35 Blood Blood Culture - Preliminary NO GROWTH AFTER 24 HOURS Resulted Laboratory Tests 11/06/18 06:45: White Blood Count 8.3, Red Blood Count 5.32, Hemoglobin 13.2, Hematocrit 40.3, Mean Corpuscular Volume 76L, Mean Corpuscular Hemoglobin 24.8L, Mean Corpuscular Hemoglobin Concent 32.7, Red Cell Distribution Width 13.8, Platelet Count 348, Mean Platelet Volume 7.4, Neutrophils (%) (Auto) 55.8, Lymphocytes (% ) (Auto) 37.0, Monocytes (%) (Auto) 5.1, Eosinophils (%) (Auto) 0.9, Basophils ( %) (Auto) 1.2, Sodium Level 142, Potassium Level 2.5*L, Chloride Level 100, Carbon Dioxide Level 32, Anion Gap 10, Blood Urea Nitrogen 18, Creatinine 1.0, Estimat Glomerular Filtration Rate > 60, Glucose Level 110#H, Calcium Level 9.3 , Magnesium Level 2.2, Troponin I 0.000 11/06/18 13:52: Sodium Level 141, Potassium Level 3.2L, Chloride Level 100, Carbon Dioxide Level 31, Anion Gap 10, Blood Urea Nitrogen 20H, Creatinine 1.2, Estimat Glomerular Filtration Rate 54.2, Glucose Level 198H, Calcium Level 9.5 Current Medications Medications (Trade) Dose Ordered Sig/Christine Route PRN Reason Start Time Stop Time Status Last Admin Dose Admin Acetaminophen (Tylenol) 650 mg Q4H PRN ORAL Mild Pain/Temp > 100.5 11/05/18 13:15 12/05/18 13:14 Amlodipine Besylate (Norvasc) 10 mg DAILY ORAL 11/05/18 09:00 12/05/18 08:59 11/06/18 08:45 Clopidogrel Bisulfate (Plavix) 75 mg DAILY ORAL 11/05/18 09:00 12/05/18 08:59 11/06/18 08:42 Dextrose (Dextrose 50%) 25 ml Q30M PRN IV Hypoglycemia 11/05/18 03:15 12/05/18 03:14 Dextrose (Dextrose 50%) 50 ml Q30M PRN IV Hypoglycemia 11/05/18 03:15 12/05/18 03:14 Diphenhydramine HCl (Benadryl) 25 mg Q12HR PRN ORAL Itching 11/05/18 23:15 12/05/18 23:14 11/05/18 23:27 Famotidine (Pepcid) 20 mg BID ORAL 11/06/18 18:00 12/06/18 17:59 Hydrochlorothiazide (Hydrodiuril) 25 mg DAILY ORAL 11/05/18 09:00 12/05/18 08:59 11/06/18 08:42 Iopamidol (Isovue-370 150ml) 150 ml NOW PRN INJ Radiology Procedure 11/04/18 20:45 11/06/18 20:40 Isosorbide Mononitrate (Imdur) 60 mg DAILY ORAL 11/07/18 09:00 12/07/18 08:59 Levothyroxine Sodium (Synthroid) 112 mcg ACBREAKFAST ORAL 11/07/18 06:30 12/07/18 06:29 Meloxicam (Mobic) 7.5 mg DAILY ORAL 11/06/18 09:00 12/06/18 08:59 11/06/18 08:42 Metoprolol Tartrate (Lopressor) 50 mg Q12HR ORAL 11/06/18 09:00 12/05/18 08:59 11/06/18 08:46 Ondansetron HCl (Zofran) 4 mg Q4H PRN IVP Nausea & Vomiting 11/06/18 13:15 12/06/18 13:14 11/06/18 13:45 Patient Own Medication (Patient's Own Med) 55 ea BEFORE BREAKFAST SUBQ 11/06/18 06:30 12/06/18 06:29 11/06/18 06:04 Patient Own Medication (Patient's Own Med) 60 ea BEFORE DINNER SUBQ 11/05/18 16:30 12/05/18 16:29 11/05/18 16:57 Tramadol HCl (Ultram) 50 mg Q6H PRN ORAL Severe Pain (Pain Scale 7-10) 11/06/18 13:15 11/13/18 13:14 11/06/18 13:46 Mariza Osborne DO November 06, 2018 16:41
--- NOTE | 2018-11-06 19:21 | NUR ---
HAND-OFF: Report given to MICHA Harrington.
[2018-11-06 19:43] LABS: APPEARANCE,URINE CLEAR; BILIRUBIN, URINE NEGATIVE (NEGATIVE); COLOR,URINE PALE YELLOW; GLUCOSE, URINE (UA) 4+ (NEGATIVE); KETONES,URINE NEGATIVE (NEGATIVE); LEUKOCYTE ESTERASE ,URINE NEGATIVE (NEGATIVE); NITRITE,URINE NEGATIVE (NEGATIVE); PH,URINE 5 (4.5-8.0); PROTEIN,URINE NEGATIVE (NEGATIVE); UROBILINOGEN,URINE NORMAL MG/DL (0.0-1.0)
[2018-11-06 20:00] VITALS: BP 143/61
[2018-11-06] MEDS ORDERED: Bactrim-DS 1 tab ORAL SCH (21:00)
[2018-11-07 04:00] VITALS: BP 155/76
[2018-11-07] MEDS: traMADol 50mg tab ORAL PRN (04:10)
[2018-11-07] MEDS: HUMALOG SUBQ SCH ×2 (05:52→17:07)
--- NOTE | 2018-11-07 07:09 | NUR ---
HAND-OFF: Report given to MICHA Sadler. Plan of care endorsed.
--- NOTE | 2018-11-07 07:30 | NUR ---
NURSE NOTES: Received report from MICHA Harrington. Patient is resting in bed, in stable condition. No s/sx of SOB, breathing is even and unlabored. Denies any presence of pain or discomfort at this time. Bed is in lowest position, brakes engaged. Call light is kept within easy reach. Will continue to monitor patient.
[2018-11-07 07:42] LABS: ANION GAP 9 mmol/L (5-15); BLOOD UREA NITROGEN 18 mg/dL (7-18); CALCIUM 9.2 MG/DL (8.5-10.1); CARBON DIOXIDE 30 MMOL/L (21-32); CHLORIDE 100 MMOL/L (98-107); POTASSIUM 3.6 MMOL/L (3.5-5.1); SODIUM 139 MMOL/L (136-145)
[2018-11-07 08:00] VITALS: BP 141/99
[2018-11-07] MEDS: Meloxicam 15 MG TAB ORAL SCH (09:12)
[2018-11-07] MEDS: Metoprolol Tartrate 50mg tab ORAL SCH (09:13)
[2018-11-07] MEDS: Imdur 30mg tab ORAL SCH (09:14)
--- NOTE | 2018-11-07 10:43 | General Progress Note ---
Assessment/Plan Assessment/Plan: Atypical CP, no DE HTN DM HLD Hx of tonsil sx in March Left axillary LN mild thickenign of esophagus seen on CT fall from bed without knee pain hypokalemia, resolved back pain Percocet PT needs out pt fu of LN l axilla and EGD no further cards chopra if stable will be dc in am Subjective Cardiovascular: Denies: chest pain Respiratory: Denies: shortness of breath Allergies: Coded Allergies: CODEINE (Verified Allergy, Intermediate, 11/04/18) PENICILLINS (Verified Allergy, Intermediate, 11/04/18) ASPIRIN (Verified Allergy, Unknown, 11/04/18) Subjective back pain Objective Last 24 Hour Vital Signs Date Time Temp Pulse Resp B/P (MAP) Pulse Ox O2 Delivery O2 Flow Rate FiO2 11/07/18 09:14 141/75 11/07/18 09:13 74 141/75 11/07/18 09:13 74 141/75 11/07/18 09:00 Room Air 11/07/18 08:00 98.0 74 18 141/99 (113) 95 11/07/18 04:40 98.2 11/07/18 04:00 96.5 64 18 155/76 (102) 96 11/07/18 04:00 66 11/07/18 00:00 57 11/06/18 21:00 Room Air 11/06/18 20:53 57 143/61 11/06/18 20:00 98.6 57 18 143/61 (88) 93 11/06/18 20:00 66 11/06/18 16:00 98.2 73 20 131/63 (85) 96 11/06/18 16:00 63 11/06/18 12:00 97.7 77 20 149/84 (105) 98 11/06/18 12:00 48 Intake and Output 11/06/18 11/07/18 19:00 07:00 Intake Total 240 ml Output Total 300 ml Balance -60 ml Intake Oral 240 ml Output Urine Total 300 ml # Voids 4 Laboratory Tests 11/06/18 13:52: Sodium Level 141, Potassium Level 3.2L, Chloride Level 100, Carbon Dioxide Level 31, Anion Gap 10, Blood Urea Nitrogen 20H, Creatinine 1.2, Estimat Glomerular Filtration Rate 54.2, Glucose Level 198H, Calcium Level 9.5 11/06/18 18:56: Urine Color Pale yellow, Urine Appearance Clear, Urine pH 5, Urine Specific [place] 1.015, Urine Protein Negative, Urine Glucose (UA) 4+H, Urine Ketones Negative, Urine Blood Negative, Urine Nitrite Negative, Urine Bilirubin Negative , Urine Urobilinogen Normal, Urine Leukocyte Esterase Negative 11/07/18 05:40: Sodium Level 139, Potassium Level 3.6, Chloride Level 100, Carbon Dioxide Level 30, Anion Gap 9, Blood Urea Nitrogen 18, Creatinine 1.0, Estimat Glomerular Filtration Rate > 60, Glucose Level 112H, Calcium Level 9.2 Height (Feet): 4 Height (Inches): 11.00 Weight (Pounds): 179 General Appearance: no apparent distress, obese Cardiovascular: normal rate Respiratory/Chest: lungs clear Marco A Dominguez MD November 07, 2018 10:43
--- NOTE | 2018-11-07 11:06 | NUR ---
CASE MANAGEMENT:REVIEW 11/07/18 SI: THROAT SWELLING. CHEST PAIN. CAD ESOPHAGEAL THICKENING 98.0 74 18 141/99 95% ON RA GLUCOSE+112 IS: IMDUR PO QD MOBIC PO QD PERCOCET PO Q4HRS PRN SYNTHROID PO QAM PEPCID PO BID LOPRESSOR PO Q12 NORVASC PO QD PLAVIX PO QD : TELEMETRY STATUS DCP: FROM HOME PLAN: PT KIM
[2018-11-07 12:00] VITALS: BP 138/62
[2018-11-07 16:00] VITALS: BP 135/72
--- NOTE | 2018-11-07 18:42 | Cardiology Progress Note ---
Assessment/Plan Assessment/Plan 1. "Throat swelling." 2. Chest pain. 3. Coronary artery disease, moderate, possibly related to coronary spasm. 4. Left axillary lymphadenopathy noted on CT scan. 5. Esophageal thickening noted on the CT scan. 6. Diabetes mellitus. 7. Hypertension. 8. Obesity. 9. Sleep apnea. 10. Polymyalgia rheumatica all trop and bnp neg ekg neg echo pending no further testing is followed at [facility] may have eval by them in future tele reviewed bmobits 1 2nd degree avb will decrease bb Subjective Cardiovascular: Reports: chest pain - bettter Respiratory: Reports: shortness of breath - better Gastrointestinal/Abdominal: Denies: abdominal pain Genitourinary: Denies: burning Subjective happy gettign percocet for her pain Objective Last 24 Hour Vital Signs Date Time Temp Pulse Resp B/P (MAP) Pulse Ox O2 Delivery O2 Flow Rate FiO2 11/07/18 16:00 97.9 57 18 135/72 (93) 97 11/07/18 12:00 57 11/07/18 12:00 97.5 68 18 138/62 (87) 92 11/07/18 09:14 141/75 11/07/18 09:13 74 141/75 11/07/18 09:13 74 141/75 11/07/18 09:00 Room Air 11/07/18 08:00 98.0 74 18 141/99 (113) 95 11/07/18 08:00 81 11/07/18 04:40 98.2 11/07/18 04:00 96.5 64 18 155/76 (102) 96 11/07/18 04:00 66 11/07/18 00:00 57 11/06/18 21:00 Room Air 11/06/18 20:53 57 143/61 11/06/18 20:00 98.6 57 18 143/61 (88) 93 11/06/18 20:00 66 General Appearance: no apparent distress, alert Neck: supple Cardiovascular: normal rate, regular rhythm Respiratory/Chest: lungs clear Abdomen: normal bowel sounds, non tender, soft Extremities: no swelling Intake and Output 11/06/18 11/07/18 19:00 07:00 Intake Total 240 ml Output Total 300 ml Balance -60 ml Intake Oral 240 ml Output Urine Total 300 ml # Voids 4 Laboratory Tests Test 11/06/18 18:56 5/20/19 05:40 Urine Color Pale yellow Urine Appearance Clear Urine pH 5 (4.5-8.0) Urine Specific [place] 1.015 (1.005-1.035) Urine Protein Negative (NEGATIVE) Urine Glucose (UA) 4+ (NEGATIVE) H Urine Ketones Negative (NEGATIVE) Urine Blood Negative (NEGATIVE) Urine Nitrite Negative (NEGATIVE) Urine Bilirubin Negative (NEGATIVE) Urine Urobilinogen Normal MG/DL (0.0-1.0) Urine Leukocyte Esterase Negative (NEGATIVE) Sodium Level 139 MMOL/L (136-145) Potassium Level 3.6 MMOL/L (3.5-5.1) Chloride Level 100 MMOL/L (98-107) Carbon Dioxide Level 30 MMOL/L (21-32) Anion Gap 9 mmol/L (5-15) Blood Urea Nitrogen 18 mg/dL (7-18) Creatinine 1.0 MG/DL (0.55-1.30) Estimat Glomerular Filtration Rate > 60 mL/min (>60) Glucose Level 112 MG/DL (74-106) H Calcium Level 9.2 MG/DL (8.5-10.1) Microbiology Date/Time Source Procedure Growth Status 11/06/18 18:56 Urine,Clean Catch Urine Culture - Preliminary NO GROWTH Resulted Macho Cruz MD November 07, 2018 18:42
--- NOTE | 2018-11-07 19:00 | NUR ---
NURSE NOTES: Patient noted with episode of HR 47 bpm. Assess patient at bedside. Patient denies shortness of breath, dizziness, BP 119/71 HR 60, room air SpO2 95%.. Contacted Dr. Cruz and left message regarding situation and assessment, awaiting reply. Will continue to monitor patient.
--- NOTE | 2018-11-07 19:10 | NUR ---
NURSE NOTES: Patient requests Benadryl 25 mg PO PRN Q12HRS for itching be changed to Benadryl 25 mg PO PRN Q6HRS for itching due to patient stating itchiness is unrelieved. Contacted Dr. Dominguez and report situation and also informed MD of pt having episode of HR 47 bpm sinus bradycardia, currently pt is sinus rhythm with HR of [address] Dominguez acknowledged and ordered Benadryl 25 mg PO PRN for itching Q6HRS and other nursing orders to walk pt in unit hallway as tolerated. Noted. Orders entered, noted, and carried out. Will continue to monitor patient.
--- NOTE | 2018-11-07 19:30 | NUR ---
HAND-OFF: Report given to MICHA Bill.
--- NOTE | 2018-11-07 19:35 | Cardiology Report ---
APPROVED REPORT EKG Measurement Heart [id number] ME [id number] Sinus bradycardia with sinus arrhythmia with 1st degree AV block Nonspecific T wave abnormality Abnormal ECG
--- NOTE | 2018-11-07 19:40 | Cardiology Report ---
APPROVED REPORT EKG Measurement Heart [id number] WI [id number] Normal sinus rhythm Voltage criteria for left ventricular hypertrophy Nonspecific T wave abnormality Prolonged QT Abnormal ECG
--- NOTE | 2018-11-07 19:42 | NUR ---
NURSE NOTES: Received report from MICHA Winslow. Patient is awake lying semi-kaufman's; resting comfortably. No signs of acute distress noted; complains of pain. AOx4; able to make needs known. Checked IV site; leaking. Will re-establish a new IV access at a later time. Bedside commode at bedside and easily accessible. Bed at lowest position, brakes on, siderails up x3. Call light within reach. Will continue to monitor.
[2018-11-07 20:00] VITALS: BP 114/61
--- NOTE | 2018-11-07 20:16 | Cardiology Report ---
APPROVED REPORT EXAM: Two-dimensional and M-mode echocardiogram with Doppler and color Doppler. INDICATION C.A.D M-Mode DIMENSIONS IVSd1.2 (0.7-1.1cm)Left Atrium (MM)4.1 (1.6-4.0cm) LVDd4.6 (3.5-5.6cm)Aortic Root2.9 (2.0-3.7cm) PWd1.0 (0.7-1.1cm)Aortic Cusp Exc.1.6 (1.5-2.0cm) IVSs1.6 cm LVDs2.9 (2.5-4.0cm) PWs1.0 cm Normal left ventricular chamber size, systolic function and wall motion. Left ventricular ejection fraction estimated to be 60-65%. No evidence left ventricular hypertrophy . No evidence of pericardial effusion. All other cardiac chamber sizes are within normal limits. Aortic valve calcification with normal cusp excursion . Mildly thickened mitral valve leaflets with normal excursion. Mild mitral annulus and aortic root calcification. Pulmonic valve not well visualized. IVC at normal size with physiologic collapse . A color flow and spectral Doppler study was performed and revealed: Trace aortic insufficiency . Mitral diastolic velocities suggest reduced left ventricular relaxation c/w mild LV diastolic dysfunction (Grade I ) Trace mitral regurgitation. Trace tricuspid regurgitation. Tricuspid systolic velocities suggests peak right ventricular systolic pressure of 13 mmHg.
[2018-11-07] MEDS: Metoprolol 25mg tab ORAL SCH (20:28)
--- NOTE | 2018-11-07 20:45 | NUR ---
NURSE NOTES: Attempted to establish new IV access x2, but unsuccessful. Patient strongly refuses further attempts ro re-insert new IV access. Risks and benefits explained; still refusing.
[2018-11-08] VITALS: BP 113/62
--- NOTE | 2018-11-08 03:29 | NUR ---
NURSE NOTES: Patient is asleep lying semi-kaufman's; resting comfortably. No signs of acute distress or pain noted at this time.
--- NOTE | 2018-11-08 03:30 | NUR ---
NURSE NOTES: Confirmed with Rafita Farrar pharmacist, that 55 EA of the patient's own Humalog Kwikpen means 55 units to be administered.
[2018-11-08 04:00] VITALS: BP 115/60
[2018-11-08] MEDS: HUMALOG SUBQ SCH (05:40)
--- NOTE | 2018-11-08 07:19 | NUR ---
HAND-OFF: Report given to MICHA Gordon. Patient is awake lying semi-kaufman's; resting comfortably. In stable condition.
--- NOTE | 2018-11-08 07:27 | NUR ---
NURSE NOTES: Pt in bed in low position, bed alarm on, pt calm and cooperative, denies pain at this time, pt on room air, call light next to patient, breakfast at bedside, ID band on, no s/s of distress or sob noted. will continue to monitor, pt states she is ready to go home.
[2018-11-08 08:02] VITALS: BP 135/72
[2018-11-08] MEDS ORDERED: MELOXICAM15 MG ORAL (08:28)
[2018-11-08] MEDS ORDERED: PERCOCET 10-321 EACH ORAL (08:28)
[2018-11-08] MEDS: Meloxicam 15 MG TAB ORAL SCH (08:29)
[2018-11-08 08:31] VITALS: BP 135/72
[2018-11-08] MEDS: Imdur 30mg tab ORAL SCH (08:31)
[2018-11-08] MEDS: Metoprolol 25mg tab ORAL SCH (08:31)
--- NOTE | 2018-11-08 08:59 | NUR ---
DISCHARGE ORDER: Md Dominguez saw the patient and discharged her. Pt aware of discharge order and pt was given one prescription, pt stated she needs transportation home. bus driver/monitor already removed, pt has no IV access. will complete discharge process.
--- NOTE | 2018-11-08 09:44 | NUR ---
DISCHARGE NOTES: Pt given aftercare plan and med recon, vitals WNL, pt calm and cooperative, pt given prescription for Percocet and Mobix. will fill at her own pharmacy. pt getting dressed, will be leaving via Taxi to home address listed on facesheet Addendum: 11/08/18 at 0952 by SHAUN BERRIOS RN Went down to pharmacy to collect pt home medication #[id number] and [id number] pt reviewed all medication and stated it was all there. pt finally dressed and will be going home. Addendum: 11/08/18 at 1028 by SHAUN BERRIOS RN Pt was walked out of the unit and into taxi to go home. Pt stated she will fill her prescription at her pharmacy.
--- NOTE | 2018-11-08 14:48 | NUR ---
*-* INSURANCE *-* ALL CLINICALS AND REVIEWS HAVE BEEN FAXED TO: [facility] [place]: VIVIANA P- [phone] F- [phone]......REVIEW/CLINICAL
--- NOTE | 2018-11-11 12:27 | Discharge Summary ---
Discharge Summary Discharge Summary _ DATE OF ADMISSION: 11/04/2018 DATE OF DISCHARGE: 11/08/2018 DISCHARGED BY: Dr. Domingeuz REASON FOR ADMISSION: 68 years old female with past medical history of hypertension, diabetes mellitus , history of myocardial infarction, presented to emergency department with shortness of breath. Patient reported onset of symptoms about 2 hours prior to arrival. Patient had a throat surgery in March of last year. Patient reported increased swelling in her throat and difficulty with respiration. Patient also reported prior history of allergic reaction . Patient allergic to aspirin, codeine , and penicillin. Patient denied any vomiting. Vital signs demonstrated revealed stable pulse oximetry on room air. Laboratory work-up revealed no leukocytosis , stable hemoglobin and hematocrit. Troponin negative. Pro BNP 43. Lactic acid 1.6. Urinalysis revealed +4 glucose,m +2 ketones, but was negative for evidence of UTI. EKG revealed normal sinus rhythm , no acute ischemic changes. Stable renal parameters and electrolytes. Chest x-ray demonstrated no acute cardiopulmonary pathology. CONSULTANTS: bias binding cutter Dr. Cruz [facility]: Patient admitted to telemetry floor. CTA of the chest revealed no evidence of pulmonary emboli , aortic dissection or aneurysm. Left axillary lymphadenopathy. Suggestion of thickening of esophageal wall. Consider EGD [place] followed. Serial troponin were negative. EKG revealed no acute ischemic changes. Patient was ruled out for acute [place]. Echocardiogram demonstrated preserved ejection fraction of 60 to 65% with no evidence of left ventricular hypertrophy. No evidence of pericardial effusion. Right ventricular systolic pressure of 14. No further testing was required as per bias binding cutter. Patient follows with a [facility] medical group and may be evaluated by them in the future. Telemetry showed AV block type II Mobitz type I. fall precautions were maintained. Patient was working with physical therapy. Benadryl was on board as needed. Levothyroxine was continued. Blood pressure was managed with beta-clotilde and hydrochlorothiazide. Blood pressure was stable. Blood sugar was managed with sliding scale insulin. Pain management was addressed. GI prophylaxis provided. Potassium repleted and was stable prior to discharge 3.6. Pain management was addressed. Supportive care provided. Bowel regimen instituted Patient started on empiric antibiotic due to mild leukocytosis on 07/26/2017. Patient was pancultured. Blood culture came back negative, urine culture revealed mixed gram-positive organism. No fever, no leukocytosis. Mild leukocytosis/present one day only, resolved, no fever. Antibiotic stopped. Patient clinically stabilized and was ready for discharge. Patient will need outpatient follow-up for lymphadenopathy and EGD as outpatient. FINAL DIAGNOSES: Atypical chest pain Hypertension Diabetes mellitus Hyperlipidemia Coronary artery disease , moderate History of tonsil surgery in March Left axillary lymphadenopathy Esophageal thickening noted on CT scan on CT Hypokalemia -resolved Back pain Obesity Sleep apnea Polymyalgia rheumatica DISCHARGE MEDICATIONS: See Medication Reconciliation list. DISCHARGE INSTRUCTIONS: Patient was discharged home. Follow up with primary care provider in one week. Patient will need outpatient follow-up for lymphadenopathy and EGD as outpatient. I have been assigned to dictate discharge summary for this account. I was not involved in the patient's management. Imelda Myers NP November 11, 2018 12:27
--- NOTE | 2018-11-20 08:01 | Coder Physician Query ---
Clarification is required for compliance, coding accuracy, and to reflect severity of illness for this patient Dear Dr. 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 Patient reported onset of symptoms about 2 hours prior to arrival. Electric Arc Welder followed. Serial troponin were negative. EKG revealed no acute ischemic changes. Patient was ruled out for acute [place]. Echocardiogram demonstrated preserved ejection fraction of 60 to 65% with no evidence of left ventricular hypertrophy. No evidence of pericardial effusion. Right ventricular systolic pressure of 14. No further testing was required as per telecom specialist. Blood pressure was managed with beta-clotilde and hydrochlorothiazide. Blood pressure was stable. FINAL DIAGNOSES: Atypical chest pain Please document the suspected etiology of Chest Pain: [] Costochondritis [] Pneumothorax [] GERD/Esophagitis [] Acute myocardial infarction [x] Acute Coronary Syndrome [] Pericarditis [] Anxiety [] Cancer [] Pneumonia [] Pulmonary embolism [] Other: [] Unable to determine JUVENCIO WILLIS M.D. Date & TIME Please also document in your Progress Notes and/or Discharge Summary and indicate if the condition was present on admission. MTDD
--- NOTE | 2018-12-02 11:00 | History and Physical Report ---
DATE OF ADMISSION: 11/05/2018 PULMONARY EVALUATION REASON FOR ADMISSION: Chest pain. HISTORY OF PRESENT ILLNESS: The patient states that she recently had surgery on her tonsils, had some throat swelling and chest pain and also palpitations. She has had chest pain before and a catheterization with moderate LAD disease and diagonal disease in June of 2017. She takes multiple medications for medical management of her underlying coronary disease and chest pain. She has had no nausea, vomiting, or diarrhea. She states she had symptoms about 1 week ago. She had a CT scan of her chest showing left axillary adenopathy and esophageal thickening. She says this has been evaluated by her primary care physician in the past and she has had ultrasound of her breast and her axilla with monitoring. She has never had any abnormal breast imaging and was told she had fatty breast tissue. PAST MEDICAL HISTORY: Includes coronary disease, hypertension, diabetes, hyperlipidemia, and sciatica. SURGICAL HISTORY: Positive for cardiac catheterizations and recent ENT surgery. MEDICATIONS: Pre-hospital and current medications reviewed reconciled, and documented in the electronic medical record by dose, frequency, and route. ALLERGIES: She has no known drug allergies. SOCIAL HISTORY: Negative for tobacco or drugs. FAMILY HISTORY: Positive for coronary disease. PHYSICAL EXAMINATION: GENERAL: At the time of my exam, she is oriented. She is in no acute distress. VITAL SIGNS: She is afebrile. Her pulse is 80, respirations are 18, and blood pressure is 151/63. HEENT: Normocephalic and atraumatic. Oropharynx is moist. Nasal mucosa moist. NECK: Supple. No lymphadenopathy. No jugular venous distention is present. HEART: Regular rate and rhythm without a murmur. ABDOMEN: Soft and nontender. Positive bowel sounds. EXTREMITIES: No edema. No focal motor deficits. Straight leg raises without significant amount of pain. LABORATORY DATA: Her white count is 11.4, her hemoglobin is 13.2, and her platelets are 75,000. Her sodium is 140, potassium 3.6, chloride 99, bicarb 20, BUN is 19, creatinine is 1.2, and glucose is 357. Her troponins have been negative x3. Her EKG is nonspecific ST-T wave changes. CT scan of her chest is negative for PE. She has got left axillary lymphadenopathy and suggested thickening of the esophageal wall. Consider esophagogastroduodenoscopy. ASSESSMENT: 1. Chest pain. Abnormal CT with left axillary lymphadenopathy, some esophageal thickening. History of diabetes, hypertension, hyperlipidemia, and poorly controlled glucose. PLAN: Plan for the patient, she has ruled out for acute coronary syndrome. She is currently without chest pain. Her primary complaint is sciatic, back and thigh pain and is requesting intravenous narcotics at this point. Her meloxicam will be restarted. No intravenous narcotics will be provided at this time. DVT prophylaxis. We will check one more set of troponins in the morning as well as a set of laboratories. She has been cleared by Cardiology and she will follow up with Dr. Pagan, her primary care physician for her left axillary lymphadenopathy and possible EGD by Gastroenterology. Mariza Osborne D.O. DR: LELA JOB#: [id number] CC: LEE ANN
== END 2018-11-08 10:32 | disposition home or self-care (01) | DRG 311 ==
LOC: EDBD 17:08 → EMR 18:16 → 2E 19:15 → EDBEDREQ 20:34
DX: I24.9 Acute ischemic heart disease, unspecified (principal); I11.9 Hypertensive heart disease without heart failure; I25.10 Atherosclerotic heart disease of native coronary artery without angina pectoris; J39.2 Other diseases of pharynx; R59.0 Localized enlarged lymph nodes; K44.9 Diaphragmatic hernia without obstruction or gangrene; M35.3 Polymyalgia rheumatica; E87.6 Hypokalemia; G47.30 Sleep apnea, unspecified; E11.9 Type 2 diabetes mellitus without complications; E78.5 Hyperlipidemia, unspecified; E66.9 Obesity, unspecified; Z68.36 Body mass index [BMI] 36.0-36.9, adult; Z88.6 Allergy status to analgesic agent; Z88.0 Allergy status to penicillin; M54.5 Low back pain
CPT/HCPCS: 36415; 71045; 71275; 80048; 80053; 81003; 82962; 83605; 83735; 83880; 84484; 85007; 85025; 87040; 87086; 93005; 93306; 96374; 96376; 99285; J1815; J2405; J8499; S0077